=== PATIENT | male | born 1965 | race Caucasian/White ===

== ENCOUNTER 2020-09-16 15:55 | Emergency (ER) | payer OTHER, SELFPAY ==
--- NOTE | ~2020-09-16 | XR_ITS ---
EXAMINATION: XR chest 2V 09/16/2020 16:18 INDICATION: Cough for 2 weeks. PROCEDURE: 2 view chest COMPARISON: No prior studies for comparison. FINDINGS: The lungs are clear. The cardiomediastinal silhouette is within normal limits. There are no pleural effusions. There is no pneumothorax suspected. IMPRESSION: 1: NO ACUTE CARDIOPULMONARY DISEASE. Reviewed, dictated and finalized at location A.
--- NOTE | 2020-09-16 16:03 | ED.URI ---
HPI - URI/Sore Throat General Chief Complaint: Upper Respiratory Infection Stated Complaint: cough Time Seen by Provider: 09/16/20 16:03 Source: patient and RN notes reviewed Mode of arrival: ambulatory Limitations: no limitations History of Present Illness HPI Narrative: 55-year-old male presents to the [facility] with complaints of a cough x2 weeks. Patient is a smoker. States that he smokes at least a pack a day. States he has tried some left over steroids which has not helped him. No other treatment prior to arrival. Denies fevers. No chest pain or shortness of breath. Does state he has had a runny nose. History of hypertension. Patient states he did not take his medication last night. Related Data Home Medications Medication Instructions Recorded Confirmed lisinopril 09/16/20 Allergies Allergy/AdvReac Type Severity Reaction Status Date / Time Penicillins Allergy Unknown Verified 09/25/13 11:07 Review of Systems Review of Systems: All systems reviewed & are unremarkable except as noted in HPI and below Constitutional: Constitutional: Reports no additional constitutional complaints, Denies chills and Denies fever(s) Eyes: Eyes: Reports no additional eye complaints ENT: Reports as per HPI Comments: Rhinorrhea Cardiovascular: Cardiovascular: Reports no additional cardiovascular complaints and Denies chest pain Respiratory: Respiratory: Reports as per HPI, Reports chest congestion, Reports cough, Denies dyspnea and Denies wheezing Gastrointestinal: Gastrointestinal: Reports no additional gastrointestinal complaints Genitourinary: Genitourinary: Reports no additional male genitourinary complaints Musculoskeletal: Musculoskeletal: Reports no additional musculoskeletal complaints Integumentary/Breasts: Skin/Breast: Reports system reviewed and no additional complaints, except as docu Neurologic: Reports system reviewed and no additional complaints, except as documented Psychiatric: Psychiatric: Reports no additional psychiatric complaints Allergic/Immunologic: Allergic/Immunologic: Reports no additional allergic/immunologic complaints [facility] Family History Family History Mother Family history of malignant neoplasm of breast in first degree relative Other Cerebrovascular accident Family history of lupus erythematosus Social History Social History Smoking status: Heavy tobacco smoker Alcohol intake: never Comments At the time of my signature, I reviewed and agree with the nursing past medical, surgical, social, and family history. There is no relevant family history pertinent to the patient complaint. Exam Const: General: healthy appearing, no acute distress and alert Nutritional Appearance: well nourished Orientation/consciousness: patient oriented x3 Limitations: no limitations HENMT: Head: normal to inspection Ears: hearing grossly normal bilaterally, external ears normal, TM's normal bilaterally and EAC's normal General nose exam: Normal external nose present, Abnormal mucous membranes and turbinates present boggy and Nasal discharge present clear Face and sinus: normal facial exam Mouth: Yes Normal oral and palatal mucosa present and Yes lip normal Throat: postnasal drainage Eyes: Conjunctivae: conjunctivae normal Pupils: Equal, round and reactive pupils present Neck: Neck: normal visual inspection, no lymphadenopathy and no meningeal signs Chest: Chest palpation & inspection: normal inspection of the chest Resp: Effort & Inspection: normal respiratory effort and no use of accessory muscles Auscultation: no crackles, no rales, no rhonchi, no wheezes and diminished lung sounds bilateral and diffuse Cardio: Rate: regular rate Rhythm: regular rhythm Back/Spine/Pelvis: Back: no CVA tenderness Skin: General skin exam: normal color Rashes: no rashes Wounds: no wounds Neuro:
[2020-09-16 16:05] VITALS: BP 146/94; PULSE 73; RESP 18; TEMP 36.6; O2SAT 100
== END 2020-09-16 16:32 | disposition home or self-care (01) ==
PROVIDERS: Emergency Provider Nurse Practitioner
DX: J40 Bronchitis, not specified as acute or chronic (principal); F17.200 Nicotine dependence, unspecified, uncomplicated; I10 Essential (primary) hypertension
CPT/HCPCS: 71046; 99203; G0463

== ENCOUNTER 2021-10-07 07:58 | Emergency (ER) | payer OTHER, SELFPAY ==
[2021-10-07] VITALS (26 sets, daily range): BP systolic 97–174; BP diastolic 46–93; PULSE 94–118; RESP 18–39; TEMP 37.8; O2SAT 93–100
--- NOTE | ~2021-10-07 | CT_ITS ---
EXAMINATION: CT brain wo con DATE: 10/07/2021 09:49 INDICATION: Headache. TECHNIQUE: Computed tomography (CT) of the head was performed without intravenous contrast. The mA wa s adjusted according to patient size. Iterative reconstruction technique was employed. The dose-lengt h product was 605.33 mGy-cm. COMPARISON: None FINDINGS: There is no intracranial hemorrhage, acute infarction, or abnormal intracranial mass lesion . The ventricles are normal in size. The orbits are normal. There is mucosal thickening in the parana lori sinuses. The mastoid air cells are normal. IMPRESSION: 1. Normal brain. Reviewed, dictated and finalized at location A. IMPRESSION: 1. Normal brain.
--- NOTE | ~2021-10-07 | CT_ITS ---
EXAMINATION: CT abdomen pelvis wo con DATE: 10/07/2021 09:50 INDICATION: Left flank pain. Hematuria. TECHNIQUE: Computed tomography (CT) of the abdomen and pelvis was performed without intravenous contr ast. Automated exposure control and iterative reconstruction technique were employed. Exam dose: 790 .26 mGy-cm total exam DLP. COMPARISON: 09/24/2013 CT abdomen pelvis FINDINGS: There is minimal bilateral lower lobe dependent atelectasis, left greater than right. Normal heart size. No pericardial or pleural effusion. The liver, gallbladder, bile ducts, spleen, pancreas and pancreatic duct are unremarkable. Bilateral adrenal hypertrophy, left greater than right. Left adrenal adenoma is not excluded. New approximately 4.6 mm nonobstructing lower pole right renal calculus since 09/24/2013. No other uri nary tract calculus or hydroureteronephrosis. There is prominent prostate enlargement and mild prostate calcification. The urinary bladder appears unremarkable. Small fat-containing left inguinal hernia. Normal caliber of the abdominal aorta. No intraperitoneal or retroperitoneal or pelvic mass lesion or adenopathy or ascites. There are proximal and mid small bowel air-fluid levels without small bowel dilatation, which may be due to enteritis or mild adynamic ileus. Normal appendix. No bowel obstruction, bowel wall thickening, pneumatosis or intraperitoneal free air is noted otherwise. Diffuse idiopathic skeletal hyperostosis of the lower thoracic spine. No suspicious osteolytic or ost eoblastic lesions are noted. IMPRESSION: 4.6 mm nonobstructing lower pole right renal calculus; no other urinary tract calculus o r hydroureteronephrosis Prostate enlargement and mild calcification Small fat-containing left inguinal hernia Proximal and mid small bowel air-fluid levels which may be due to enteritis or mild adynamic ileus; n o bowel obstruction or free air Normal appendix Reviewed, dictated and finalized at Location A. Reviewed, dictated and finalized at location B. IMPRESSION: 4.6 mm nonobstructing lower pole right renal calculus; no other ur inary tract calculus or hydroureteronephrosis Prostate enlargement and mild calcification Small fat-containing left inguinal hernia Proximal and mid small bowel air-fluid levels which may be due to enteritis or mild adynamic ileus; no bowel obstruction or free air Normal appendix
--- NOTE | ~2021-10-07 | XR_ITS ---
EXAMINATION: XR chest 2V DATE: 10/07/2021 09:01 INDICATION: Palpitations. Dizziness. TECHNIQUE: Frontal and lateral views of the chest were obtained. COMPARISON: Chest 2 views 09/16/2020, CT abdomen and pelvis 09/24/2013 FINDINGS: There is no pneumonia, pleural effusion, or pneumothorax. The heart size is normal. IMPRESSION: 1. No acute cardiopulmonary disease. Reviewed, dictated and finalized at location A.
--- NOTE | 2021-10-07 08:00 | ECG_ITS ---
Measurements Intervals [place] Rate: 118 P: 59 [place]: 177 QRS: 2 QRSD: 102 T: 48 QT: 296 QTc: 416 Interpretive Statements SINUS TACHYCARDIA POSSIBLE LEFT ATRIAL ENLARGEMENT [-0.1mV P WAVE IN V1/V2] BORDERLINE ECG NO PREVIOUS ECG AVAILABLE FOR COMPARISON Electronically Signed On 10-07-2021 14:10:17 CDT by Stepan Villagomez M.D.
[2021-10-07 08:17] LABS: Basophils Absolute Auto 0.1 K/mm3 (0.0-0.1); Basophils Percent Auto 0.8 % (0.2-1.2); Eosinophils Absolute Auto 0.3 K/mm3 (0-0.3); Eosinophils Percent Auto 3.1 % (0-4.4); Hematocrit 46.3 % (42.0-52.0); Hemoglobin 15.6 g/dL (14.0-18.0); Immature Granulocyte Absolute 0.05 K/mm3 (0.00-0.031); Immature Granulocyte Percent A 0.6 % (0-0.5); Lymphocytes Absolute Auto 0.62 K/mm3 (0.9-3.2); Lymphocytes Percent Auto 7.1 % (18.3-44.2); Mean Corpuscular HGB Conc 33.7 g/dl (32-36); Mean Corpuscular Volume 91.9 fl (80-100); Mean Platelet Volume 9.5 fl (7.4-10.4); Monocytes Absolute Auto 0.5 K/mm3 (0.1-0.6); Monocytes Percent Auto 5.4 % (2.6-8.5); Neutrophils Absolute Auto 7.3 K/mm3 (1.3-6.7); Platelet Count Result 253 k/mm3 (150-375); Red Blood Count 5.04 M/mm3 (4.6-6.20); Red Cell Distribution Width 13.6 % (11.5-14.5); White Blood Count 8.8 K/mm3 (4.5-10.0)
[2021-10-07 08:29] LABS: Alanine Aminotransferase 27 U/L (6-50); Albumin Level 4.5 g/dL (3.5-5.1); Alkaline Phosphatase 96 U/L (38-126); Anion Gap 11 mmol/L (8-16); Aspartate Amino Transferase 27 U/L (17-59); Bilirubin,Total 0.4 mg/dL (0.2-1.3); Blood Urea Nitrogen 9 mg/dL (9-20); Calcium 9.1 mg/dL (8.4-10.2); Carbon Dioxide 28 mmol/L (22-30); Chloride 100 mmol/L (98-107); Estimated CRCL calculation 123 ml/min; Estimated Glomerular Filt Rate > 60; Glucose 122 mg/dL (65-110); Lipase 65 U/L (23-300); Potassium 4.2 mmol/L (3.4-5.0); Prothrombin Time 12.6 Seconds (11.1-14.7); Sodium 139 mmol/L (137-145)
[2021-10-07 08:30] LABS: Partial Thromboplastin Time 28.7 SECONDS (22.3-36.8)
--- NOTE | 2021-10-07 08:30 | ED.ARRPALP ---
HPI - Arrhythmia/Palpitations General Chief Complaint: Arrhythmia/Palpitations Stated Complaint: dizzy, heart racing Time Seen by Provider: 10/07/21 08:25 History of Present Illness HPI narrative: pt here with waking up at 0300 normally wakes at 0400 and felt achy all over shaking and cortez no f/uri/v/d/abd pain/isolated cp but palpiattions and no sob/neuro cahgnes just weak all over and no loc/trauma. says working in heat 13 horus days took rapid work covid test neg no sick contact got vaccinated no meds for symptoms does smoke cough from this the same as always no calf pain ro swelling no vision chagnes Related Data Home Medications Medication Instructions Recorded Confirmed lisinopril 20 mg tablet 09/16/20 Allergies Allergy/AdvReac Type Severity Reaction Status Date / Time Penicillins Allergy Unknown Verified 09/25/13 11:07 Review of Systems Constitutional: Comments: CONSTITUTIONAL: Denies fever, chills, or sweats. EYES: Denies visual changes, redness, or discharge. ENT: Denies rhinorrhea, congestion, sore throat, or otalgia. CARDIOVASCULAR: Denies chest pain, has palpitations, no edema. RESPIRATORY: Denies cough or dyspnea. GASTROINTESTINAL: Denies abdominal pain, has nausea, no vomiting, or diarrhea. GENITOURINARY: Denies dysuria or hematuria. SKIN: Denies rash or itching. MUSCULOSKELETAL: Denies back pain, joint pain, or myalgia. NEUROLOGIC: has headache,no numbness, but weakness all over achy PSYCHIATRIC: Denies anxiety or depression. [facility] Family History Family History Mother Family history of malignant neoplasm of breast in first degree relative Other Cerebrovascular accident Family history of lupus erythematosus Social History Social History Smoking status: Heavy tobacco smoker Alcohol intake: never Exam Const: Other: APPEARANCE: Well appearing, no pain in distress, well-nourished. warm to touch Head normocephalic atraumtaic. EYES: PERRLA/EOMI, conjunctivae very clear. NOSE: Normal no drainage EARS:TMS clear Preeti Huerta, with good light reflex. THROAT: Pharynx clear, no exudate. NECK: Supple. No adenopathy, no masses. RESPIRATORY: Airway patent, repsirations nonlabored. Clear to auscultation bilaterally, no rales, rhonchi, wheezing. CARDIOVASCULAR: tachy rate and rhythm without murmurs rubs or gallops. ABDOMINAL: Soft, nontender, nondistended, no hepatosplenomegally MUSCULOSKELETAl: Moves all extremities. Strenght/ROM intact, No edema, No calf tenderness. NEURO: Alert. Cranial nerves II through XII intact. Good coordination no focal deficits SKIN:: Warm, dry. Normal Color PSYCHIATRIC: Normal affect/mood, normal interaction with parents. Course Reevaluation(s) Reevaluation #1: updated pt at 0933 pt feeling better with meds added ct's given cortez elevated bp and blood/infection ? inurine before d/c Vital Signs Vital signs: Vital Signs Temperature 37.8 C H 10/07/21 08:06 Pulse Rate 117 H 10/07/21 08:06 Respiratory Rate 20 10/07/21 08:06 Blood Pressure 174/93 H 10/07/21 08:06 Pulse Oximetry 100 10/07/21 08:06 Oxygen Delivery Room Air 10/07/21 08:06 Temperature 37.8 C H 10/07/21 08:06 Pulse Rate 115 H 10/07/21 10:05 Respiratory Rate 27 H 10/07/21 10:05 Blood Pressure 144/78 H 10/07/21 10:05 Pulse Oximetry 96 10/07/21 10:05 Oxygen Delivery Room Air 10/07/21 08:06 MDM - Arrhythmia/Palpitations Lab Data Result diagrams: 10/07/21 08:08 10/07/21 08:08 Labs: Lab Results 10/07/21 10/07/21 10/07/21 Range/Units 08:08 08:08 08:08 WBC 8.8 (4.5-10.0) K/mm3 RBC 5.04 (4.6-6.20) M/mm3 Hgb 15.6 (14.0-18.0) g/dL Hct 46.3 (42.0-52.0) % MCV 91.9 (80-100) fl MCH 31.0 (26-34) pg MCHC 33.7 (32-36) g/dl RDW 13.6 (11.5-14.5) % Plt Count 253 (150-375) k/mm3 MPV 9.5 (7.4-10.4) fl
[2021-10-07 08:37] LABS: Add Urine Microscopic? YES; Appearance Urine Clear (Clear); Bilirubin Urine Negative (Negative); Blood Urine 1+ (Negative); Color Urine Yellow (Yellow); Glucose Urine UA Negative (Negative); Ketones Urine Negative (Negative); Leukocyte Esterase Ur Trace LEU/UL (Negative); Nitrate Urine Negative (Negative); Protein Urine Negative (Negative); Specific Grav Ur 1.025 (1.001-1.035); Urobilinogen Urine 0.2 mg/dL (<2.0); pH Urine 5.5 (5.0-9.0)
[2021-10-07 08:40] LABS: Troponin I < 0.012 ng/mL (0.000-0.034)
[2021-10-07 08:45] LABS: Mucus Urine Rare /lpf; Squamous Epithelial Cell Urine Rare /hpf (Few)
[2021-10-07] MEDS: SODIUM CHLORIDE 0.9% IV 1,000 ML 999 ML IV CONT (08:46)
[2021-10-07] MEDS: ONDANSETRON INJ 4 MG/2 ML VIAL IV PUSH (08:47)
[2021-10-07] MEDS: ASPIRIN 81 MG CHEWABLE TABLET 324 MG PO (08:50)
[2021-10-07] MEDS: fentaNYL CITRATE INJ (*CRX) 100 MCG/2 ML VIAL IV PUSH (08:50)
[2021-10-07] MEDS: ACETAMINOPHEN 500 MG TABLET 1000 MG PO (08:51)
[2021-10-07 08:59] LABS: Creatine Kinase 103 U/L (55-170); Magnesium 1.4 mg/dL (1.6-2.3)
[2021-10-07 09:19] LABS: SARS-CoV-2 RNA PCR Positive
[2021-10-07] MEDS: KETOROLAC 30 MG/ML VIAL (*BKC) IV PUSH (10:00)
[2021-10-07 11:41] LABS: Troponin I < 0.012 ng/mL (0.000-0.034)
== END 2021-10-07 11:51 | disposition home or self-care (01) ==
PROVIDERS: Emergency Provider Emergency Medicine
DX: U07.1 COVID-19 (principal); F17.200 Nicotine dependence, unspecified, uncomplicated; N20.0 Calculus of kidney; N40.0 Benign prostatic hyperplasia without lower urinary tract symptoms; K40.90 Unilateral inguinal hernia, without obstruction or gangrene, not specified as recurrent; R00.0 Tachycardia, unspecified; R94.31 Abnormal electrocardiogram [ECG] [EKG]
CPT/HCPCS: 36415; 70450; 71046; 74176; 80053; 81001; 82550; 83690; 83735; 84443; 84484; 85025; 85610; 85730; 93005; 96361; 96374; 96375; 99284; A9270; C9803; J1885; J2405; J3010; J7030; U0003; U0005

== ENCOUNTER → 2021-12-05 08:29 | Outpatient (CLI) | payer OTHER, SELFPAY ==
--- NOTE | ~2021-12-05 | CT_ITS ---
EXAMINATION: CT lung screening DATE: 12/05/2021 08:59 INDICATION: Personal history of nicotine dependence, current smoker with 38 pack year history TECHNIQUE: Computed tomography (CT) of the chest was performed without intravenous contrast. The dose -length product (DLP) was 205.89 mGy-cm. Automated exposure control and iterative reconstruction tech [employer] were employed. COMPARISON: None FINDINGS: There is mild emphysema. The lungs are free of acute opacities. No suspicious pulmonary nod ules are identified. No pleural effusion or pneumothorax. No pathologically enlarged thoracic lymph n odes are identified. The heart size is normal. There is mild thoracic spondylosis. IMPRESSION: 1. Lung-RADS category 1: Negative. Continue annual screening with noncontrast low-dose chest CT in 12 months. Reviewed, dictated and finalized at location A. IMPRESSION: 1. Lung-RADS category 1: Negative. Continue annual screening with noncontrast l ow-dose chest CT in 12 months.
== END ==
DX: Z12.2 Encounter for screening for malignant neoplasm of respiratory organs (principal); Z87.891 Personal history of nicotine dependence
CPT/HCPCS: 71271

== ENCOUNTER 2022-07-18 10:17 | Emergency (ER) | payer OTHER, SELFPAY ==
--- NOTE | ~2022-07-18 | XR_ITS ---
Clinical Indication: Chest pain PA and lateral views of the chest: Comparison: 10/07/2021 Findings: The lungs are clear, without evidence of focal consolidation or pleural effusion. Cardiome diastinal silhouette is within normal limits. Bones and soft tissues are unremarkable. Impression: Normal chest. Reviewed, dictated and finalized at location . Impression: Normal chest.
--- NOTE | 2022-07-18 10:24 | ECG_ITS ---
Measurements Intervals [place] Rate: 73 P: 52 [place]: 192 QRS: 16 QRSD: 100 T: 42 QT: 362 QTc: 400 Interpretive Statements SINUS RHYTHM INCOMPLETE RIGHT BUNDLE BRANCH BLOCK BORDERLINE ECG COMPARED TO ECG 10/07/2021 08:04:29 SINUS RHYTHM NOW PRESENT Electronically Signed On 07-18-2022 10:34:16 CDT by Сергей Perez D.O.
[2022-07-18 10:40] LABS: Basophils Percent Auto 0.1 % (0.2-1.2); Eosinophils Absolute Auto 0.6 K/mm3 (0-0.3); Eosinophils Percent Auto 6.2 % (0-4.4); Hematocrit 44.6 % (42.0-52.0); Hemoglobin 14.8 g/dL (14.0-18.0); Immature Granulocyte Absolute 0.04 K/mm3 (0.00-0.031); Immature Granulocyte Percent A 0.4 % (0-0.5); Lymphocytes Absolute Auto 3.27 K/mm3 (0.9-3.2); Lymphocytes Percent Auto 36.3 % (18.3-44.2); Mean Corpuscular HGB Conc 33.2 g/dl (32-36); Mean Corpuscular Hemoglobin 30.1 pg (26-34); Mean Corpuscular Volume 90.8 fl (80-100); Mean Platelet Volume 9.7 fl (7.4-10.4); Monocytes Absolute Auto 0.7 K/mm3 (0.1-0.6); Monocytes Percent Auto 7.2 % (2.6-8.5); Neutrophils Absolute Auto 4.5 K/mm3 (1.3-6.7); Neutrophils Percent Auto 49.8 % (45.5-73.1); Platelet Count Result 252 k/mm3 (150-375); Red Blood Count 4.91 M/mm3 (4.6-6.20); Red Cell Distribution Width 13.1 % (11.5-14.5)
[2022-07-18 10:51] LABS: Alanine Aminotransferase 30 U/L (6-50); Albumin Level 4.3 g/dL (3.5-5.1); Alkaline Phosphatase 91 U/L (38-126); Anion Gap 6 mmol/L (8-16); Aspartate Amino Transferase 30 U/L (17-59); Bilirubin,Total 0.3 mg/dL (0.2-1.3); Blood Urea Nitrogen 15 mg/dL (9-20); Carbon Dioxide 26 mmol/L (22-30); Chloride 107 mmol/L (98-107); Estimated Glomerular Filt Rate > 60; Glucose 125 mg/dL (65-110); Lipase 122 U/L (23-300); Potassium 3.9 mmol/L (3.4-5.0); Sodium 139 mmol/L (137-145)
[2022-07-18 10:52] LABS: INR 0.9; Partial Thromboplastin Time 29.7 SECONDS (22.3-36.8)
[2022-07-18 11:03] LABS: Troponin I < 0.012 ng/mL (0.000-0.034)
[2022-07-18 11:21] VITALS: BP 147/86; PULSE 69; RESP 14; TEMP 36.5; O2SAT 100
[2022-07-18] MEDS: ASPIRIN 81 MG CHEWABLE TABLET 324 MG PO (11:41)
[2022-07-18 11:42] VITALS: O2SAT 98
[2022-07-18 11:43] VITALS: BP 132/90; PULSE 77; RESP 16; O2SAT 98
[2022-07-18 13:00] VITALS: BP 127/75; PULSE 55; RESP 24; O2SAT 97
[2022-07-18 13:02] LABS: D Dimer 0.44 ug/mL (<0.48)
[2022-07-18 14:18] LABS: Troponin I < 0.012 ng/mL (0.000-0.034)
--- NOTE | 2022-07-18 14:22 | ED.CHESTPAIN ---
HPI - Chest Pain General Chief Complaint: Chest Pain Stated Complaint: chest pain Time Seen by Provider: 07/18/22 12:07 Source: patient and RN notes reviewed Mode of arrival: ambulatory Limitations: no limitations History of Present Illness HPI narrative: This is a 57 year old male with history of hypertension who presents for evaluation of left chest pain. Patient states he developed sharp chest pain yesterday. This pain has been constant but nonradiating. He has noticed his pain is slightly worse with movement . HE denies any other associated symptoms such as nausea, vomiting, cough, fever, shortness of breath, leg swelling or calf pain. Related Data Allergies Allergy/AdvReac Type Severity Reaction Status Date / Time Penicillins Allergy Unknown Hives Verified 05/26/22 15:45 Review of Systems Constitutional: Constitutional: Denies weakness Cardiovascular: Cardiovascular: Reports chest pain, Denies syncope, Denies rapid heart rate, Denies irregular heart rhythm, Denies leg edema and Denies dyspnea Respiratory: Respiratory: Denies chest congestion, Denies hemoptysis, Denies excessive phlegm production and Denies dyspnea Gastrointestinal: Gastrointestinal: Denies abdominal pain, Denies hematochezia, Denies diarrhea and Denies vomiting Genitourinary: Genitourinary: Denies hematuria, Denies dysuria, Denies penile discharge and Denies testicular pain Musculoskeletal: Musculoskeletal: Denies joint swelling, Denies loss of height and Denies muscle weakness Neurologic: Denies syncope, Denies focal weakness and Denies weakness PMFSH Past Medical History Medical History (Updated 07/18/22 @ 14:55 by Yvonne Charles MD) Essential (primary) hypertension Moderate eczema Family History Family History Mother Family history of malignant neoplasm of breast in first degree relative Other Cerebrovascular accident Family history of lupus erythematosus Social History Social History Smoking status: Current every day smoker Alcohol intake: never Substance use: never Lack of Transportation: No Lack of Food: Never True Current Housing: I Have Housing Concerned About Future Housing: No Difficulty Paying Gas/Electric Bills: No Difficulty Paying for Meds: No Currently Unemployed: No Difficulty w/ Childcare or Family Care: No Living arrangements: with family Occupation/Education: occupation Spiritual care concerns: No Agree to blood products: Yes Exam Const: General: no acute distress and alert Nutritional Appearance: well nourished Orientation/consciousness: patient oriented x3 HENMT: Head: normal to inspection Eyes: EOM: EOMs intact bilaterally Neck: Neck: normal visual inspection Chest: Chest palpation & inspection: normal inspection of the chest Resp: Effort & Inspection: normal respiratory effort Auscultation: clear to auscultation bilaterally Cardio: Rate: regular rate Rhythm: regular rhythm Heart sounds: no murmurs GI: GI Palp: Yes Soft to palpation, No Tenderness to palpation present (GI), No Guarding due to palpation present (GI) and No Rigid due to palpation Auscultation: normal bowel sounds Skin: General skin exam: normal color Rashes: no rashes Wounds: no wounds Neuro: General: patient oriented x3, moves all extremities and CN's II-XI intact bilaterally Extrem: General: normal to inspection Psych: Mental Status: mental status grossly normal Affect: normal affect Attitude: cooperative Course Reevaluation(s) Reevaluation #1: I discussed with patient that EKG is normal and troponin negative x 2. D dimer also negative. PE unlikely, no risk factors for Aortic dissection. I discussed discharge plan to go home and he is agreeable to discharge and follow up with PCP. Return precautions given Date: 07/18/22 Time: 14:51 Vital Signs Vital signs: Vital Sign
== END 2022-07-18 15:17 | disposition home or self-care (01) ==
PROVIDERS: Emergency Medicine; Emergency Provider General Practice
DX: R07.89 Other chest pain (principal); I10 Essential (primary) hypertension; F17.200 Nicotine dependence, unspecified, uncomplicated; I45.10 Unspecified right bundle-branch block
CPT/HCPCS: 36415; 71046; 80053; 83690; 84484; 85025; 85380; 85610; 85730; 93005; 99284; A9270

== ENCOUNTER 2022-11-24 08:30 | Emergency (ER) | payer OTHER, SELFPAY ==
--- NOTE | ~2022-11-24 | XR_ITS ---
EXAMINATION: XR ankle RT min 3V, XR foot RT min 3V DATE: 11/24/2022 09:08 INDICATION: Lateral right ankle and dorsolateral right foot pain post injury TECHNIQUE: 1. Anteroposterior, mortise, additional oblique and lateral view of the right ankle were obtained. 2. Dorsoplantar, two oblique and lateral views of the right foot were obtained. COMPARISON: None. FINDINGS: Alignment of the right foot and ankle is normal. No fracture or osteochondral lesion. 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 Large plantar calcaneal spur. No ankle joint effusion. Soft tissue swelling about the lateral malleolus. IMPRESSION: 1. No acute osseous abnormality at the right foot or ankle. Reviewed, dictated and finalized at location A. IMPRESSION: 1. No acute osseous abnormality at the right foot or ankle.
--- NOTE | 2022-11-24 09:29 | ED.LOWEXIN ---
HPI - Extremity Injury (Lower) General Chief Complaint: Extremity Injury, Lower Stated Complaint: Fall right ankle pain Time Seen by Provider: 11/24/22 08:35 History of Present Illness HPI Narrative: This is a 57-year-old male, past history of hypertension, presents emergency department complaining of right ankle pain after rolling it. The patient states he was walking at work, when he missed stepped rolling the right ankle externally. He had quick onset 6/10 dull and intermittently sharp pain. The pain radiates up the lateral aspect of the right foreleg. He denies other injury, including head injury or loss of consciousness. Related Data Allergies Allergy/AdvReac Type Severity Reaction Status Date / Time Penicillins Allergy Unknown Hives Verified 05/26/22 15:45 Review of Systems Review of Systems: CONSTITUTIONAL: Denies fever, chills, or sweats. CARDIOVASCULAR: Denies chest pain, palpitations, or edema. RESPIRATORY: Denies cough or dyspnea. GASTROINTESTINAL: Denies abdominal pain, nausea, vomiting, or diarrhea. GENITOURINARY: Denies dysuria or hematuria. SKIN: Denies rash or itching. MUSCULOSKELETAL: Right ankle and foreleg pain denies back pain, or myalgia. NEUROLOGIC: Denies headache, numbness, dizziness, or weakness. PSYCHIATRIC: Denies anxiety or depression. PMFSH Past Medical History Medical History Essential (primary) hypertension Moderate eczema Family History Family History Mother Family history of malignant neoplasm of breast in first degree relative Other Cerebrovascular accident Family history of lupus erythematosus Social History Social History Smoking status: Current every day smoker Alcohol intake: never Substance use: never Lack of Transportation: No Lack of Food: Never True Current Housing: I Have Housing Concerned About Future Housing: No Difficulty Paying Gas/Electric Bills: No Difficulty Paying for Meds: No Currently Unemployed: No Difficulty w/ Childcare or Family Care: No Living arrangements: with family Occupation/Education: occupation Spiritual care concerns: No Agree to blood products: Yes Exam Narrative: GENERAL: Well-developed, well-nourished, and in no acute distress. HEAD: Normocephalic, atraumatic. EYES: PERRLA and EOMI. CHEST: Clear to auscultation. No respiratory distress. No wheezes rales or rhonchi HEART: Regular rate and rhythm. No murmur heard. Normal peripheral pulses. ABDOMEN: Soft, nontender, nondistended, normal active bowel sounds. EXTREMITIES: Swelling to the lateral aspect of the right ankle. Tender at the distal aspect of the right lateral malleolus. There is no noted ecchymosis. Range of motion of the right ankle limited by pain. Otherwise normal range of motion of all other extremities. No edema. NEURO: Alert and oriented x3. Moving all 4 limbs purposefully. PSYCH: Normal mood and affect. Course Course Emergency Course: 09:30 - X-ray of the right ankle and foot not concerning for fracture or dislocation. Will treat with RICE therapy and recommend primary care follow-up. Discussed return and emergency precautions including signs/symptoms of neurovascular compromise and septic arthritis. The patient voiced understanding and is comfortable with the plan. All questions answered to his satisfaction. MDM - Extremity Injury (Lower) MDM Narrative Medical decision making narrative: Plan: Imaging, pain control, reassess Differential Diagnosis Differential diagnosis: Likely ankle sprain and strain, ankle fracture and other (Foot fracture, dislocation, other) Discharge Plan Discharge Clinical Impression: Ankle sprain and strain, Acute right ankle pain Patient Disposition: Home, Self-Care Condition: Stable Instructions: Antibiotic Form, Ankle
[2022-11-24] MEDS: ACETAMINOPHEN 500 MG TABLET 1000 MG PO (09:33)
== END 2022-11-24 09:35 | disposition home or self-care (01) ==
PROVIDERS: Emergency Provider Preventive Medicine Aerospace Medicine; PCP Family Medicine
DX: S93.401A Sprain of unspecified ligament of right ankle, initial encounter (principal); S96.911A Strain of unspecified muscle and tendon at ankle and foot level, right foot, initial encounter; I10 Essential (primary) hypertension; F17.200 Nicotine dependence, unspecified, uncomplicated; X50.9XXA Other and unspecified overexertion or strenuous movements or postures, initial encounter
CPT/HCPCS: 73610; 73630; 99283; A9270

== ENCOUNTER 2022-12-25 15:44 | Outpatient (CLI) | payer OTHER, SELFPAY ==
[2022-12-25 19:16] LABS: Cholesterol 177 mg/dL (0-200); HDL Direct 30 mg/dL; Triglycerides 118 mg/dL (<150)
[2022-12-25 20:01] LABS: Prostate Specific Antigen 4.5 ng/mL (< OR = 4.0)
[2022-12-25 21:36] LABS: LDL Cholesterol Direct 118 mg/dL
== END 2022-12-25 15:45 | disposition home or self-care (01) ==
LOC: ANHGOSHLAB 15:46
PROVIDERS: PCP Family Medicine; Visit Provider Family Medicine
DX: Z13.220 Encounter for screening for lipoid disorders (principal); Z12.5 Encounter for screening for malignant neoplasm of prostate
CPT/HCPCS: 36415; 80061; 84153; G0103